=== PATIENT | male | born 1975 | race Caucasian/White ===

== ENCOUNTER 2020-01-30 11:12 | Emergency (ER) | payer OTHER, SELFPAY ==
[2020-01-30] VITALS (11 sets, daily range): BP systolic 136–177; BP diastolic 97–107; PULSE 90–108; RESP 11–19; TEMP 36.1; O2SAT 83–99
--- NOTE | 2020-01-30 12:52 | ECG_ITS ---
Measurements Intervals [place] Rate: 91 P: 61 SD: 157 QRS: 24 QRSD: 95 T: 46 QT: 355 QTc: 437 Interpretive Statements SINUS RHYTHM EARLY PRECORDIAL R/S TRANSITION BORDERLINE ECG Electronically Signed On 01-30-2020 13:42:26 CDT by Brando Bains D.O.
[2020-01-30 13:17] LABS: Basophils Absolute Auto 0.1 K/mm3 (0.0-0.1); Basophils Percent Auto 0.6 % (0.2-1.2); Eosinophils Percent Auto 0.2 % (0-4.4); Hematocrit 43.6 % (42.0-52.0); Hemoglobin 15.2 g/dL (14.0-18.0); Immature Granulocyte Absolute 0.07 K/mm3 (0.00-0.031); Immature Granulocyte Percent A 0.8 % (0-0.5); Lymphocytes Absolute Auto 1.21 K/mm3 (0.9-3.2); Lymphocytes Percent Auto 13.6 % (18.3-44.2); Mean Corpuscular HGB Conc 34.9 g/dl (32-36); Mean Corpuscular Hemoglobin 32.1 pg (26-34); Mean Platelet Volume 9.8 fl (7.4-10.4); Monocytes Absolute Auto 0.3 K/mm3 (0.1-0.6); Monocytes Percent Auto 3.7 % (2.6-8.5); Neutrophils Absolute Auto 7.2 K/mm3 (1.3-6.7); Neutrophils Percent Auto 81.1 % (45.5-73.1); Platelet Count Result 250 k/mm3 (150-375); Red Blood Count 4.74 M/mm3 (4.6-6.20); Red Cell Distribution Width 11.9 % (11.5-14.5); White Blood Count 8.9 K/mm3 (4.5-10.0)
[2020-01-30 13:27] LABS: Alanine Aminotransferase 24 U/L (4-50); Albumin Level 4.7 g/dL (3.5-5.1); Alkaline Phosphatase 85 U/L (38-126); Anion Gap 11 mmol/L (8-16); Aspartate Amino Transferase 31 U/L (17-59); Bilirubin,Total 0.4 mg/dL (0.2-1.3); Blood Urea Nitrogen 16 mg/dL (9-20); Calcium 9.4 mg/dL (8.4-10.2); Carbon Dioxide 27 mmol/L (22-30); Chloride 102 mmol/L (98-107); Estimated CRCL calculation 91 ml/min; Estimated Glomerular Filt Rate > 60; Glucose 109 mg/dL (75-110); Potassium 4.2 mmol/L (3.4-5.0); Sodium 140 mmol/L (137-145)
--- NOTE | 2020-01-30 15:19 | ED.GENADULT ---
HPI - General Adult General Chief complaint: Alcohol Stated complaint: alcohol withdrawl Time Seen by Provider: 01/30/20 12:24 Source: patient History of Present Illness HPI narrative: Patient is a 44 y/o male complaining of mild to moderate shaking since this morning. He states that he drinks heavily daily, perhaps 15 beers a day. He last drank approximately 8 PM last night. He has some nausea. He denies any abdominal pain, vomiting or seizure. He states that the shaking has improved slightly. Related Data Allergies Allergy/AdvReac Type Severity Reaction Status Date / Time No Known Allergies Allergy Verified 01/30/20 12:46 Review of Systems Constitutional: Constitutional: Denies chills, Denies fever(s), Denies headache(s) and Denies weakness Eyes: Eyes: Denies blurry vision ENT: Denies headache(s) and Denies neck pain Cardiovascular: Cardiovascular: Denies chest pain and Denies dyspnea Respiratory: Respiratory: Denies cough and Denies dyspnea Gastrointestinal: Gastrointestinal: Denies abdominal pain, Denies diarrhea, Reports nausea and Denies vomiting Genitourinary: Genitourinary: Denies hematuria and Denies dysuria Musculoskeletal: Musculoskeletal: Denies back pain and Denies neck pain Neurologic: Denies headache(s), Reports tremor(s) and Denies weakness Exam Const: General: no acute distress and well developed Orientation/consciousness: oriented to person, oriented to place, oriented to time and patient oriented x3 HENMT: Head: normocephalic Ears: external ears normal General nose exam: Normal external nose present Eyes: General: appearance normal, both eyes and all related structures Conjunctivae: conjunctivae normal Neck: Neck: normal visual inspection and full ROM Chest: Chest palpation & inspection: normal inspection of the chest and no tenderness Resp: Effort & Inspection: normal respiratory effort Auscultation: clear to auscultation bilaterally Cardio: Rate: regular rate Rhythm: regular rhythm GI: GI Palp: No abdominal tenderness and Yes Soft to palpation Skin: General skin exam: normal color and turgor normal Neuro: General: oriented to person, oriented to place, oriented to time and patient oriented x3 Cognition (Neuro): normal cognition Motor exam (neuro): no tremors Extrem: General: normal to inspection, full ROM and no pedal edema Psych: Appearance: grossly normal Mental Status: mental status grossly normal Affect: normal affect Course Vital Signs Vital signs: Vital Signs Temperature 36.1 C L 01/30/20 11:27 Pulse Rate 108 H 01/30/20 11:27 Respiratory Rate 12 01/30/20 11:27 Blood Pressure 136/107 H 01/30/20 11:27 Pulse Oximetry 99 01/30/20 11:27 Temperature 36.1 C L 01/30/20 11:27 Pulse Rate 92 01/30/20 15:02 Respiratory Rate 19 01/30/20 15:02 Blood Pressure 153/99 H 01/30/20 15:02 Pulse Oximetry 95 01/30/20 15:02 Medical Decision Making Vital Signs Vital Signs: Vital Signs Temperature 36.1 C L 01/30/20 11:27 Pulse Rate 108 H 01/30/20 11:27 Respiratory Rate 12 01/30/20 11:27 Blood Pressure 136/107 H 01/30/20 11:27 Pulse Oximetry 99 01/30/20 11:27 Temperature 36.1 C L 01/30/20 11:27 Pulse Rate 92 01/30/20 15:02 Respiratory Rate 19 01/30/20 15:02 Blood Pressure 153/99 H 01/30/20 15:02 Pulse Oximetry 95 01/30/20 15:02 Lab Data Result diagrams: 01/30/20 13:02 01/30/20 13:02 Labs: Lab Results 01/30/20 01/30/20 Range/Units 13:02 13:02 WBC 8.9 (4.5-10.0) K/mm3 RBC 4.74 (4.6-6.20) M/mm3 Hgb 15.2 (14.0-18.0) g/dL Hct 43.6 (42.0-52.0) % MCV 92.0 (80-100) fl MCH 32.1 (26-34) pg MCHC 34.9 (32-36) g/dl RDW 11.9 (11.5-14.5) % Plt Count 250 (150-375) k/mm3 MPV 9.8 (7.4-10.4) fl Immature Gran % (Auto) 0.8 H (0-0.5) % Neut % (Auto) 81.1 H (45.5-73.1) % Lymph % (Auto) 13.6 L (18.3-44.2) % [place] % (Auto) 3.7 (2.6-8.5) %
== END 2020-01-30 15:03 | disposition home or self-care (01) ==
PROVIDERS: Emergency Provider Emergency Medicine; PCP Emergency Medicine
DX: F10.230 Alcohol dependence with withdrawal, uncomplicated (principal); R94.31 Abnormal electrocardiogram [ECG] [EKG]
CPT/HCPCS: 36415; 80053; 85025; 93005; 99283

== ENCOUNTER 2020-05-27 11:38 | Day surgery (SDC) | payer OTHER, SELFPAY ==
[2020-05-27] VITALS (10 sets, daily range): BP systolic 101–139; BP diastolic 69–91; PULSE 108–143; RESP 12–20; TEMP 36.8–37.9; O2SAT 95–99
--- NOTE | ~2020-05-27 | CT_ITS ---
EXAMINATION: CT abdomen pelvis w con INDICATION: Right lower quadrant pain TECHNIQUE: Computed tomographic images of the abdomen and pelvis were obtained after the administrati on of 100 cc of Omnipaque 350 intravenous contrast. The dose-length product (DLP) was 490.85 mGy-cm. Automated exposure control and iterative reconstruction technique were employed. COMPARISON: None available FINDINGS: Minimal dependent atelectasis is present in the lung bases. The heart size is normal. The l iver, spleen, pancreas, and adrenal glands are normal. The gallbladder is surgically absent. There is mild enlargement of the common bile duct and central intrahepatic ducts which is likely due to post cholecystectomy state. A small amount of pneumobilia is also noted. The kidneys are unremarkable. The dilated appendix measures up to 12 mm. There is edematous stranding of the periappendiceal fat. Ther e is no evidence of perforation or periappendiceal abscess. No pathologically enlarged abdominal or p elvic lymph nodes are identified. There is no free intraperitoneal gas or evidence of bowel obstructi on. IMPRESSION: 1. Acute appendicitis. These findings were discussed with VITOR Dejesus in the Emergency Departme at 1358 hours on 05/27/2020. Reviewed, dictated and finalized at location A. SSMENT CONSULTANT IMPRESSION: 1. Acute appendicitis. These findings were discussed with VITOR Dejesus in the Emergency Department at 1358 hours on 05/27/2020.
[2020-05-27 12:07] LABS: Basophils Percent Auto 0.2 % (0.2-1.2); Hematocrit 42.1 % (42.0-52.0); Immature Granulocyte Absolute 0.12 K/mm3 (0.00-0.031); Immature Granulocyte Percent A 0.9 % (0-0.5); Lymphocytes Percent Auto 2.2 % (18.3-44.2); Mean Corpuscular HGB Conc 35.6 g/dl (32-36); Mean Corpuscular Hemoglobin 32.7 pg (26-34); Mean Corpuscular Volume 91.7 fl (80-100); Mean Platelet Volume 9.6 fl (7.4-10.4); Monocytes Absolute Auto 0.5 K/mm3 (0.1-0.6); Monocytes Percent Auto 3.3 % (2.6-8.5); Neutrophils Absolute Auto 12.7 K/mm3 (1.3-6.7); Neutrophils Percent Auto 93.4 % (45.5-73.1); Platelet Count Result 160 k/mm3 (150-375); Red Blood Count 4.59 M/mm3 (4.6-6.20); Red Cell Distribution Width 11.9 % (11.5-14.5); White Blood Count 13.6 K/mm3 (4.5-10.0)
[2020-05-27] MEDS: SODIUM CHLORIDE 0.9% IV 1,000 ML 999 ML IV CONT ×2 (12:17→14:37)
[2020-05-27] MEDS: FAMOTIDINE 20 MG/2 ML VIAL IV PUSH (12:17)
[2020-05-27 12:18] LABS: Alanine Aminotransferase 25 U/L (4-50); Albumin Level 4.7 g/dL (3.5-5.1); Alkaline Phosphatase 84 U/L (38-126); Anion Gap 10 mmol/L (8-16); Aspartate Amino Transferase 31 U/L (17-59); Bilirubin,Total 1.2 mg/dL (0.2-1.3); Blood Urea Nitrogen 14 mg/dL (9-20); Calcium 9.6 mg/dL (8.4-10.2); Carbon Dioxide 24 mmol/L (22-30); Chloride 101 mmol/L (98-107); Estimated CRCL calculation 75 ml/min; Estimated Glomerular Filt Rate > 60; Glucose 161 mg/dL (75-110); Lipase 24 U/L (23-300); Potassium 4.3 mmol/L (3.4-5.0); Sodium 135 mmol/L (137-145)
[2020-05-27 12:25] LABS: Add Urine Microscopic? YES; Appearance Urine Clear (Clear); Bilirubin Urine Negative (Negative); Blood Urine Negative (Negative); Color Urine Yellow (Yellow); Glucose Urine UA Negative (Negative); Ketones Urine Negative (Negative); Leukocyte Esterase Ur Trace LEU/UL (Negative); Mucus Urine Rare /lpf; Nitrate Urine Negative (Negative); Protein Urine 1+ mg/dL (Negative); RBC Urine 0-2 /hpf (0-2); Specific Grav Ur 1.019 (1.001-1.035); Squamous Epithelial Cell Urine Rare /hpf (Few); Transitional Epi Cells Urine Rare /hpf (None Seen); Urobilinogen Urine Negative mg/dL (<2.0)
--- NOTE | 2020-05-27 13:36 | ED.ABDPAIN ---
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 Patient denies fever chills nausea vomiting Related Data Home Medications Medication Instructions Recorded Confirmed buspirone mg 05/27/20 doxepin 05/27/20 oxycodone 05/27/20 sertraline mg 05/27/20 trazodone 100 mg 05/27/20 Allergies Allergy/AdvReac Type Severity Reaction Status Date / Time No Known Allergies Allergy Verified 05/27/20 11:41 Review of Systems Review of Systems: All systems reviewed & are unremarkable except as noted in HPI and below PMFSH Surgical History Surgical History (Updated 05/27/20 @ 13:37 by Jason Maldonado PA-C) S/P skin biopsy Exam Narrative: Exam Narrative: GENERAL: Well-appearing, well-nourished, and in no acute distress. HEAD: Normocephalic, atraumatic. EYES: PERRLA and EOMI. ENT: Nares clear, no rhinorrhea or epistaxis. Mucous membranes moist. CHEST: Clear to auscultation. No respiratory distress. No wheezes rales or rhonchi HEART: Tachycardic rate and regular rhythm. No murmur heard. Normal peripheral pulses. ABDOMEN: Soft, right lower quadrant abdominal pain without voluntary guarding or rebound r, nondistended, normal active bowel sounds. EXTREMITIES: Normal range of motion. No edema. SKIN: Warm, dry, no rash. NEURO: No focal deficits. Alert and oriented x3. PSYCH: Normal mood and affect. Course Course Emergency Course: Patient hydrated given Zosyn after being found to have appendicitis patient will be transferred to the surgical suite for removal of his appendix by Dr. Laws patient agrees with this plan resting comfortably in the room in no distress Consultations Consultation #1: Discussed case with Dr. Laws who will take the patient to the operating room patient to be given Zosyn and fluids Date: 05/27/20 Time: 14:45 Vital Signs Vital signs: Vital Signs Temperature 98.2 F 05/27/20 11:39 Pulse Rate 143 H 05/27/20 11:39 Respiratory Rate 20 05/27/20 11:39 Blood Pressure 135/91 H 05/27/20 11:39 Pulse Oximetry 99 05/27/20 11:39 Temperature 98.2 F 05/27/20 12:47 Pulse Rate 120 H 05/27/20 13:52 Respiratory Rate 18 05/27/20 13:52 Blood Pressure 139/83 05/27/20 13:52 Pulse Oximetry 97 05/27/20 13:52 MDM - Abdominal Pain MDM Narrative Medical decision making narrative: Patient with acute appendicitis will be switched over to the operating room patient was given fluids and antibiotics in the emergency department Lab Data Result diagrams: 05/27/20 11:55 05/27/20 11:55 Labs: Lab Results 05/27/20 05/27/20 05/27/20 Range/Units 11:55 11:55 11:55 WBC 13.6 H (4.5-10.0) K/mm3 RBC 4.59 L (4.6-6.20) M/mm3 Hgb 15.0 (14.0-18.0) g/dL Hct 42.1 (42.0-52.0) % MCV 91.7 (80-100) fl MCH 32.7 (26-34) pg MCHC 35.6 (32-36) g/dl RDW 11.9 (11.5-14.5) % Plt Count 160 (150-375) k/mm3 MPV 9.6 (7.4-10.4) fl Immature Gran % (Auto) 0.9 H (0-0.5) % Neut % (Auto) 93.4 H (45.5-73.1) % Lymph % (Auto) 2.2 L (18.3-44.2) % [place] % (Auto) 3.3 (2.6-8.5) % Eos % (Auto) 0.0 (0-4.4) % Baso % (Auto) 0.2 (0.2-1.2) % Lymph # (Auto) 0.30 L (0.9-3.2) K/mm3 [place] # (Auto) 0.5 (0.1-0.6) K/mm3 Eos # (Auto) 0.0 (0-0.3) K/mm3 Baso # (Auto) 0.0 (0.0-0.1) K/mm3 Abs Immat Gran (auto) 0.12 H (0.00-0
--- NOTE | 2020-05-27 14:55 | PM.IMHP ---
H&P: HPI History of Present Illness Date/Time: 05/27/20 14:55 Chief Complaint: Acute Appendicitis Narrative: Irene Dougherty is a 45 year old male patient who presents to emergency department with 1 day duration of right lower quadrant abdominal pain. He describes it as an aching pain worse with activity and movement and denies similar occurrence in the past. 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 Patient denies fever, chills, nausea,and vomiting Workup in the emergency room [place] [id number] scan of the abdomen pelvis reveals previous history of a cholecystectomy, some mild atelectasis in lower a little area of his lungs and acute appendicitis without signs of complication. Appendix was 12 mm in diameter with some surrounding edematous/inflammatory changes. Related Data Review of Systems Constitutional: Constitutional: Reports no additional constitutional complaints, Reports fatigue and Denies malaise Eyes: Eyes: Denies change in vision and Denies loss of vision ENT: Reports Normal hearing present, Denies change in voice, Denies dizziness, Denies hoarseness and Denies sore throat Cardiovascular: Cardiovascular: Denies chest pain, Denies leg edema and Denies dyspnea Respiratory: Respiratory: Denies cough, Denies dyspnea and Denies wheezing Gastrointestinal: Gastrointestinal: Denies hematochezia, Denies change in bowel habits and Denies heartburn Genitourinary: Genitourinary: Denies urinary frequency and Denies urinary incontinence Integumentary/Breasts: Skin/Breast: Reports as per HPI Comments: Patient has had 2 superficial melanomas. One cared for with Mohs surgery on his face just below his right eye the other excised at [facility] earlier this week. No sentinel lymph node done apparently. Neurologic: Reports Normal hearing present, Denies confusion, Denies dizziness, Denies loss of vision, Denies memory loss and Denies seizure-like activity Psychiatric: Psychiatric: Denies confusion, Denies depression and Denies memory loss Endocrine: Endocrine: Denies cold intolerance and Reports fatigue Hematologic/Lymphatic: Hematologic/Lymphatic: Denies easy bleeding and Denies easy bruising Allergic/Immunologic: Allergic/Immunologic: Denies wheezing PMFSH Past Medical History Medical History (Updated 05/27/20 @ 15:23 by Hosea Laws MD) Depression Surgical History Surgical History S/P skin biopsy Family History Family History (Updated 05/27/20 @ 15:20 by Hosea Laws MD) Father Laryngeal cancer Mother Thyroid disease Social History Social History (Updated 05/27/20 @ 15:21 by Hosea Laws MD) Smoking status: Never smoker Alcohol intake: former Alcohol use details: History of heavy alcohol use in the past none recently Substance use: never Meds Home Medications and Allergies Home Medications Medication Instructions Recorded Confirmed Type buspirone mg 05/27/20 History doxepin 05/27/20 History oxycodone 05/27/20 History sertraline mg 05/27/20 History trazodone 100 mg 05/27/20 History Allergies Allergy/AdvReac Type Severity Reaction Status Date / Time No Known Allergies Allergy Verified 05/27/20 11:41 Vital Signs Vital Signs - 24 hr 05/27/20 11:39 05/27/20 12:47 05/27/20 13:52 Temperature 36.8 C 36.8 C Pulse Rate 143 H 120 H Respiratory Rate 20 18 Blood Pressure 135/91 H 139/83 Pulse Oximetry 99 97 Exam Const: General: cooperative, no acute distress, well developed, alert and awake Nutritional Appearance: well nourished Orientation/consciousness: patient oriented x3 Li
--- NOTE | 2020-05-27 15:22 | WPDANESEPP ---
Anes - Eval Pre Procedure Procedure: Operation Date: 05/27/20 16:30 Proposed Procedures p Laparoscopic Appendectomy, possible open - Hosea Laws MD Date/Time: 05/27/20 15:22 Surgeon: ivan Preop Diagnosis: acute appendicitis Pre Op Diagnosis: RIGHT SIDED ABD PAIN Patient Data Age: 45 Gender: M Height: 5 ft 9 in Weight: 84 kg Last Vital Signs Temp 36.8 C 05/27/20 12:47 Pulse 120 H 05/27/20 13:52 Resp 18 05/27/20 13:52 BP 139/83 05/27/20 13:52 Pulse Ox 97 05/27/20 13:52 Allergies Allergy/AdvReac Type Severity Reaction Status Date / Time No Known Allergies Allergy Verified 05/27/20 11:41 Home Medications Medication Instructions Recorded Confirmed Type buspirone mg 05/27/20 History doxepin 05/27/20 History oxycodone 05/27/20 History sertraline mg 05/27/20 History trazodone 100 mg 05/27/20 History Laboratory Tests 05/27/20 05/27/20 05/27/20 11:55 11:55 11:55 WBC 13.6 K/mm3 H K/mm3 (4.5-10.0) RBC 4.59 M/mm3 L M/mm3 (4.6-6.20) Hgb 15.0 g/dL g/dL (14.0-18.0) Hct 42.1 % % (42.0-52.0) MCV 91.7 fl fl (80-100) MCH 32.7 pg pg (26-34) MCHC 35.6 g/dl g/dl (32-36) RDW 11.9 % % (11.5-14.5) Plt Count 160 k/mm3 k/mm3 (150-375) MPV 9.6 fl fl (7.4-10.4) Immature Gran % (Auto) 0.9 % H % (0-0.5) Neut % (Auto) 93.4 % H % (45.5-73.1) Lymph % (Auto) 2.2 % L % (18.3-44.2) [place] % (Auto) 3.3 % % (2.6-8.5) Eos % (Auto) 0.0 % % (0-4.4) Baso % (Auto) 0.2 % % (0.2-1.2) Lymph # (Auto) 0.30 K/mm3 L K/mm3 (0.9-3.2) [place] # (Auto) 0.5 K/mm3 K/mm3 (0.1-0.6) Eos # (Auto) 0.0 K/mm3 K/mm3 (0-0.3) Baso # (Auto) 0.0 K/mm3 K/mm3 (0.0-0.1) Abs Immat Gran (auto) 0.12 K/mm3 H K/mm3 (0.00-0.031) Absolute Neuts (auto) 12.7 K/mm3 H K/mm3 (1.3-6.7) Absolute Nucleated RBC 0.0 K/mm3 K/mm3 (0.0-0.012) Nucleated RBC % 0.0 % % (0.0-0.2) Sodium 135 mmol/L L mmol/L (137-145) Potassium 4.3 mmol/L mmol/L (3.4-5.0) Chloride 101 mmol/L mmol/L (98-107) Carbon Dioxide 24 mmol/L mmol/L (22-30) Anion Gap 10 mmol/L mmol/L (8-16) BUN 14 mg/dL mg/dL (9-20) Creatinine 1.10 mg/dL mg/dL (0.7-1.3) Estim Creat Clear Calc 75 ml/min ml/min Estimated GFR > 60 (59 - ) Glucose 161 mg/dL H mg/dL (75-110) Calcium 9.6 mg/dL mg/dL (8.4-10.2) Total Bilirubin 1.2 mg/dL mg/dL (0.2-1.3) AST 31 U/L U/L (17-59) ALT 25 U/L U/L (4-50) Alkaline Phosphatase 84 U/L U/L (38-126) Total Protein 8.0 g/dL g/dL (6.3-8.2) Albumin 4.7 g/dL g/dL (3.5-5.1) Lipase 24 U/L U/L (23-300) Urine Color Yellow (Yellow) Urine Appearance Clear (Clear) Urine pH 6.0 (5.0-9.0) Ur Specific [place] 1.019 (1.001-1.035) Urine Protein 1+ mg/dL H mg/dL (Negative) Urine Glucose (UA) Negative mg/dL mg/dL (Negative) Urine Ketones Negative mg/dL mg/dL (Negative) Ur Blood (Man) Negative (Negative) Urine Nitrate Negative (Negative) Urine Bilirubin Negative (Negative) Urine Urobilinogen Negative mg/dL mg/dL (<2.0) Leukocyte Esterase Rfl Trace GUILLERMINA/UL H GUILLERMINA/UL (Negative) Urine RBC 0-2 /hpf /hpf (0-2) Urine WBC 4-6 /hpf H /hpf Ur Squamous Epith Cells Rare /hpf /hpf (Few) Ur Transition Epith Cell Rare /hpf /hpf (None Seen) Urine Mucus Rare /lpf /lpf Patient hx anesthesia problems: none Family hx anesthesia problems: none [facility] Past Medical History Medical History (Updated 05/27/20 @ 15:23 b
--- NOTE | 2020-05-27 15:34 | WPDANESEFPP ---
Anes - Eval Final PreProcedure Day of Procedure 05/27/20 15:34 Patient weight: overweight Heart: regular rate and rhythm Lungs: clear to auscultation Airway: Mallampati scale class II Neurological: alert and oriented Last oral intake: >/= 8 hours ASA classification: III Emergent: yes Anesthetic plan: proceed Anesthesia type and monitoring: general ETT Informed Consent: The patient's anesthetic plan and its attendant risks and benefits were discussed with the patient/family/POA. Questions were solicited and answers provided to the satisfaction of the patient/family/POA.
[2020-05-27] MEDS: BUPIVACAINE/EPINEPHRINE 0.5% 10 ML VIAL 20 ML INFILTRATE (15:52)
--- NOTE | 2020-05-27 16:31 | PM.PROC ---
Procedure Note - Detailed Date of procedure: 05/27/20 Pre-op diagnosis: RIGHT SIDED ABD PAIN Acute uncomplicated appendicitis Post-op diagnosis: same Procedure performed: Laparoscopic Appendectomy Description of procedure: The patient was seen again in the Holding Room. The risks, benefits, complications, treatment options, and expected outcomes were discussed with the patient and/or family. The possibilities of reaction to medication, pulmonary aspiration, perforation of viscus, bleeding, recurrent infection, finding a normal appendix, the need for additional procedures, failure to diagnose a condition, and creating a complication requiring transfusion or operation were discussed. There was concurrence with the proposed plan and informed consent was obtained. The site of surgery was properly noted/marked. The patient was taken to Operating Room, and a time out was preformed which identified this as the proper patient, and the procedure verified as laparoscopic appendectomy, possible open. The patient was placed in the supine position and general anesthesia was induced, along with placement of orogastric tube, SCD hose, and a Jose catheter. The abdomen was prepped and draped in a sterile fashion. Because the patient had had previous surgeries the Enrique cannula technique was utilized. To do this I made a incision in the umbilical area and carried this down to the midline fascia. Under direct vision the midline fascia was incised and the peritoneum entered under direct vision after placing 2 sutures of 0 Vicryl in the fascia on either side of midline. The Enrique cannula was then slid into place into the peritoneum under direct vision. The pneumoperitoneum was then established to steady pressure of 14 mm Hg. A 12 mm laparoscopic port was placed through a transverse suprapubic incision. An additional 5 mm cannula was then placed in the left upper quadrant of the abdomen at a level half way between the umbilicus and the left subcostal area under direct vision. A careful evaluation of the entire abdomen was carried out. The patient was placed in Trendelenburg and left lateral decubitus position. The small intestines were retracted in the cephalad and left lateral direction away from the pelvis and right lower quadrant. The patient was found to have an enlarged and inflamed appendix that was extending [into the right side of the pelvis. There was no evidence of perforation. The appendix was carefully dissected. This required just a little bit of dissection of the peritoneum around the lateral side and the base of the appendix with the L shape cautery instrument. It was noted to be quite short small and thick. Once it was free the appendix was then divided at its base using the 45 mm stapler with a 3.5 mm bowel wall load. Minimal appendiceal stump was left in place. The appendiceal artery bled some however, it was touched with Bovie cautery using the L hook and this seemed to achieve good hemostasis along the staple line. I placed 1 unfolded 4 x 4 down the 10 mm port in the suprapubic position and soaked up the bleeding from the area of the appendiceal artery and we sponged the appendiceal stump. There was no continuing bleeding. We placed the appendix in a bag and pulled it out and then the looked at the stump again and there was no evidence of bleeding, leakage, or complication after division of the appendix at its junction with the cecum. The appendix and the bag were then extracted through this larger port site in the suprapubic position. The suprapubic port site was closed using a #1 Polysorb suture passed with a Mike-Sanchez cone and needle suture passer Also I used a standard needle peng externally through the suprapubic incision at the level of the fascia to reinforce the fascial closure. I also shortened 1 of the 0 Polysorb sutures used as a stay suture at the umbilical site and did a [id number] suture to close the umbilical fascia. The 2 stay sutur
[2020-05-27] MEDS: LACTATED RINGERS 1,000 ML 30 ML IV CONT (16:34)
== END 2020-05-27 17:59 | disposition home or self-care (01) ==
LOC: ANHED 12:53 → ANHSURGERY 14:29
PROVIDERS: Emergency Provider Emergency Medicine; PCP Family Medicine; Visit Provider Surgery
PROC: 0DTJ4ZZ Resection of Appendix, Percutaneous Endoscopic Approach (ICD-10-PCS; CPT 44970; principal; 2020-05-27 16:30)
DX: C18.1 Malignant neoplasm of appendix (principal); K35.80 Unspecified acute appendicitis; F32.9 Major depressive disorder, single episode, unspecified; C43.9 Malignant melanoma of skin, unspecified; Z72.89 Other problems related to lifestyle
CPT/HCPCS: 44970; 36415; 74177; 80053; 81001; 83690; 85025; 88304; 96365; 96375; 99285; J0131; J1100; J1170; J1200; J2250; J2405; J2543; J2704; J2710; J3010; J7030; J7120; Q9967

== ENCOUNTER → 2020-07-28 01:30 | Outpatient (CLI) | payer OTHER, SELFPAY ==
[2020-07-28 20:22] LABS: SARS-CoV-2 RNA PCR Negative
== END ==
PROVIDERS: PCP Family Medicine; Visit Provider Surgery
DX: Z01.812 Encounter for preprocedural laboratory examination (principal); Z20.822 Contact with and (suspected) exposure to COVID-19
CPT/HCPCS: C9803; U0003; U0005

== ENCOUNTER 2020-07-31 01:17 | Day surgery (SDC) | payer OTHER, SELFPAY ==
[2020-07-18 11:12] VITALS: BMI 28.3
[2020-07-31 12:53] VITALS: BMI 27.3
[2020-07-31] MEDS: LACTATED RINGERS 1,000 ML 150 ML IV CONT (12:58)
--- NOTE | 2020-07-31 12:58 | WPDANESEPPF ---
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 Patient Data Age: 45 Gender: M Height: 5 ft 9 in Weight: 84 kg Allergies Allergy/AdvReac Type Severity Reaction Status Date / Time No Known Allergies Allergy Verified 07/18/20 11:11 Home Medications Medication Instructions Recorded Confirmed Type buspirone 10 mg PO DAILY 05/27/20 07/18/20 History doxepin 50 mg PO DAILY 05/27/20 07/18/20 History sertraline 100 mg PO DAILY 05/27/20 07/18/20 History trazodone 100 mg PO HS 05/27/20 07/18/20 History Patient hx anesthesia problems: none Family hx anesthesia problems: none PMFSH Past Medical History Medical History Depression Surgical History Surgical History History of laparoscopic appendectomy S/P skin biopsy Family History Family History Father Laryngeal cancer Mother Thyroid disease Social History Social History Years smoked: 7 Smoking status: Former smoker Tobacco type: cigarettes Alcohol intake: never Substance use: never Substance use type: does not use Living arrangements: with family Spiritual care concerns: No Anes - Eval Final PreProcedure Day of Procedure 07/31/20 12:58 Patient weight: overweight Heart: regular rate and rhythm Lungs: clear to auscultation Airway: Mallampati scale class II Neurological: alert and oriented Last oral intake: >/= 8 hours ASA classification: II Emergent: no Anesthetic plan: proceed Anesthesia type and monitoring: general GIVS and standard monitoring Informed Consent: The patient's anesthetic plan and its attendant risks and benefits were discussed with the patient/family/POA. Questions were solicited and answers provided to the satisfaction of the patient/family/POA.
--- NOTE | 2020-07-31 13:26 | WPDHPUPDATE1 ---
History and Physical Update Update Date/Time: 07/31/20 13:26 History and Physical has been reviewed, including an updated exam of the patient. There are NO changes in the patient's condition. Risks, benefits, and alternatives have been discussed and questions answered. Patient agrees to proceed with procedure.
[2020-07-31 14:52] VITALS: BP 109/77; PULSE 92; RESP 22; O2SAT 100
[2020-07-31 15:02] VITALS: BP 120/91; PULSE 80; RESP 20; O2SAT 100
[2020-07-31 15:12] VITALS: BP 136/90; PULSE 85; RESP 20; O2SAT 100
== END 2020-07-31 15:45 | disposition home or self-care (01) ==
PROVIDERS: PCP Family Medicine; Visit Provider Surgery
PROC: 0DJD8ZZ Inspection of Lower Intestinal Tract, Via Natural or Artificial Opening Endoscopic (ICD-10-PCS; CPT 45378; principal; 2020-07-31 14:00)
DX: Z12.11 Encounter for screening for malignant neoplasm of colon (principal); K63.5 Polyp of colon; K62.1 Rectal polyp; K57.30 Diverticulosis of large intestine without perforation or abscess without bleeding; Z85.09 Personal history of malignant neoplasm of other digestive organs; F32.9 Major depressive disorder, single episode, unspecified; Z87.891 Personal history of nicotine dependence
CPT/HCPCS: 45380; 88305; J2704; J7120

== ENCOUNTER 2021-04-04 15:07 | Emergency (ER) | payer OTHER, SELFPAY ==
[2021-04-04 15:22] VITALS: BP 131/89; PULSE 95; RESP 18; TEMP 36.7; O2SAT 98
--- NOTE | 2021-04-04 15:38 | ED.GENADULT ---
HPI - General Adult General Chief complaint: Urogenital-Male Stated complaint: UTI Time Seen by Provider: 04/04/21 15:30 Source: patient, RN notes reviewed and old records reviewed Mode of arrival: ambulatory Limitations: no limitations History of Present Illness HPI narrative: 46-year-old male presents to the [facility] with come pains of my eyes are yellow and I think I have liver issues. Patient states this started approximately 3 days ago with increased weakness, yellowing of the eyes and very dry skin. States he started drinking a lot of water but it did nothing. Drank a bunch of beer last night and states yellowish the eyes got a little bit better. Denies any chest pain or abdominal pain. States that he has been generalized weak over the last 2 to 3 days. Reports starting a cholesterol medication approximately 3 weeks ago. Related Data Home Medications Medication Instructions Recorded Confirmed sertraline 100 mg PO DAILY 05/27/20 02/19/21 trazodone 100 mg PO HS 05/27/20 02/19/21 Allergies Allergy/AdvReac Type Severity Reaction Status Date / Time No Known Allergies Allergy Verified 04/04/21 15:26 Review of Systems Review of Systems: All systems reviewed & are unremarkable except as noted in HPI and below Constitutional: Constitutional: Reports as per HPI, Denies chills, Reports fatigue, Denies fever(s) and Reports weakness Eyes: Eyes: Reports as per HPI Comments: Yellowish of the eyes ENT: Reports as per HPI Comments: Oral mucosa, yellowish Cardiovascular: Cardiovascular: Reports no additional cardiovascular complaints, Denies chest pain and Denies radiating jaw, neck or arm pain Respiratory: Respiratory: Reports no additional respiratory complaints, Denies cough and Denies dyspnea Gastrointestinal: Gastrointestinal: Reports no additional gastrointestinal complaints, Denies abdominal pain, Denies nausea and Denies vomiting Genitourinary: Genitourinary: Reports as per HPI, Denies dysuria, Denies urinary frequency and Denies urinary incontinence Comments: Brown urine Musculoskeletal: Musculoskeletal: Reports no additional musculoskeletal complaints Integumentary/Breasts: Skin/Breast: Reports as per HPI Comments: Dry skin Neurologic: Reports system reviewed and no additional complaints, except as documented Psychiatric: Psychiatric: Reports no additional psychiatric complaints Allergic/Immunologic: Allergic/Immunologic: Reports no additional allergic/immunologic complaints PMFSH Past Medical History Medical History Acute appendicitis Anxiety Depression Diverticula of intestine Heartburn Melanoma Surgical History Surgical History History of colonoscopy History of laparoscopic appendectomy 2020 S/P skin biopsy 2020 Family History Family History Father Laryngeal cancer Mother Thyroid disease Social History Social History Years smoked: 10 Smoking status: Former smoker Tobacco type: cigarettes Smoking end date: 02/02/20 Alcohol intake: current Drinks per week: 63 Alcohol use details: 7 beers a night during the week, about 14 beers a night on weekend. 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 Gender identity (if verbalized by the patient): Male Sexual Orientation (if Verbalized by the Patient): Straight or Heterosexual Spiritual care concerns: No Comments At the time of my signature, I reviewed and agree with the nursing past medical, surgical, social, and family history. There is no relevant family history pertinent to the patient complaint. Exam Const: General: no acute distress, alert and ill appearing acutely Nutritional Appearance: well nourished Orientation/consciousness: pa
== END 2021-04-04 15:45 | disposition left against medical advice (07) ==
PROVIDERS: Emergency Provider Nurse Practitioner; PCP Internal Medicine
DX: R17 Unspecified jaundice (principal); Z87.891 Personal history of nicotine dependence
CPT/HCPCS: 81003; 99212; G0463

== ENCOUNTER 2021-09-06 07:56 | Outpatient (CLI) | payer OTHER, SELFPAY ==
--- NOTE | ~2021-09-06 | CT_ITS ---
EXAMINATION: CT abdomen pelvis w con INDICATION: Neoplasm of uncertain behavior of the appendix, history of low-grade appendiceal mucinous neoplasm, noninvasive TECHNIQUE: Computed tomographic images of the abdomen and pelvis were obtained after the administrati on of 100 cc of Omnipaque 350 intravenous contrast. The dose-length product (DLP) was 532.60 mGy-cm. Automated exposure control and iterative reconstruction technique were employed. COMPARISON: 05/27/2020 FINDINGS: Minimal dependent atelectasis is present in the lung bases. The heart size is normal. The g allbladder is surgically absent. The liver, spleen, pancreas, and adrenal glands are normal. The kidn eys are unremarkable. There are changes of interval appendectomy. No pathologically enlarged abdomina l or pelvic lymph nodes are identified. There is no free intraperitoneal gas or evidence of bowel obs truction. No metastatic disease is evident. There is mild lumbar spondylosis. IMPRESSION: 1. Changes of interval appendectomy. No evidence of metastatic disease. Reviewed, dictated and finalized at location A.
== END 2021-09-06 07:57 | disposition home or self-care (01) ==
PROVIDERS: PCP Internal Medicine; Visit Provider Surgery
DX: D37.3 Neoplasm of uncertain behavior of appendix (principal)
CPT/HCPCS: 74177; Q9967

== ENCOUNTER 2021-12-08 10:49 | Emergency (ER) | payer OTHER, SELFPAY ==
[2021-12-08 10:50] VITALS: BP 145/98; PULSE 86; RESP 16; TEMP 36.3; O2SAT 100
[2021-12-08 11:21] LABS: Basophils Percent Auto 0.3 % (0.2-1.2); Eosinophils Percent Auto 0.4 % (0-4.4); Hematocrit 41.8 % (42.0-52.0); Hemoglobin 14.5 g/dL (14.0-18.0); Immature Granulocyte Absolute 0.04 K/mm3 (0.00-0.031); Immature Granulocyte Percent A 0.6 % (0-0.5); Lymphocytes Absolute Auto 1.18 K/mm3 (0.9-3.2); Lymphocytes Percent Auto 16.5 % (18.3-44.2); Mean Corpuscular HGB Conc 34.7 g/dl (32-36); Mean Corpuscular Hemoglobin 32.4 pg (26-34); Mean Corpuscular Volume 93.5 fl (80-100); Mean Platelet Volume 9.4 fl (7.4-10.4); Monocytes Absolute Auto 0.3 K/mm3 (0.1-0.6); Monocytes Percent Auto 4.3 % (2.6-8.5); Neutrophils Absolute Auto 5.6 K/mm3 (1.3-6.7); Neutrophils Percent Auto 77.9 % (45.5-73.1); Platelet Count Result 195 k/mm3 (150-375); Red Blood Count 4.47 M/mm3 (4.6-6.20); Red Cell Distribution Width 12.1 % (11.5-14.5); White Blood Count 7.2 K/mm3 (4.5-10.0)
[2021-12-08 11:33] LABS: Alanine Aminotransferase 27 U/L (6-50); Alkaline Phosphatase 68 U/L (38-126); Anion Gap 12 mmol/L (8-16); Aspartate Amino Transferase 30 U/L (17-59); Bilirubin,Total 0.9 mg/dL (0.2-1.3); Blood Urea Nitrogen 11 mg/dL (9-20); Calcium 9.3 mg/dL (8.4-10.2); Carbon Dioxide 21 mmol/L (22-30); Chloride 103 mmol/L (98-107); Estimated Glomerular Filt Rate > 60; Glucose 92 mg/dL (65-110); Lipase 38 U/L (23-300); Potassium 4.3 mmol/L (3.4-5.0); Sodium 136 mmol/L (137-145)
[2021-12-08 12:32] LABS: Appearance Urine Clear (Clear); Bilirubin Urine Negative (Negative); Blood Urine Negative (Negative); Color Urine Yellow (Yellow); Glucose Urine UA Negative (Negative); Ketones Urine Negative (Negative); Leukocyte Esterase Ur Negative LEU/UL (Negative); Nitrate Urine Negative (Negative); Protein Urine Negative (Negative); Specific Grav Ur 1.015 (1.001-1.035); Urobilinogen Urine 0.2 mg/dL (<2.0); pH Urine 5.5 (5.0-9.0)
[2021-12-08 12:44] LABS: Add Urine Microscopic? NO
[2021-12-08] MEDS: ONDANSETRON INJ 4 MG/2 ML VIAL IV PUSH (13:03)
[2021-12-08] MEDS: SODIUM CHLORIDE 0.9% IV 1,000 ML 999 ML IV CONT (13:04)
--- NOTE | 2021-12-08 13:54 | ED.GENADULT ---
HPI - General Adult General Chief complaint: Abdominal Pain Stated complaint: abd complaint Time Seen by Provider: 12/08/21 11:59 History of Present Illness HPI narrative: Patient is a 46-year-old male who presents to the ER with abdominal cramping. Reports over the last month he has had fatigue and weakness after experiencing COVID. He then had dehydration while at a rock and roll concert. Over the last week he been having abdominal cramping with diarrhea 3 times a day. Since dissipated. He still has some nausea and feels bubbles in his abdomen. No fevers or chills or sweats. No chest pain or chest pressure. Related Data Home Medications Medication Instructions Recorded Confirmed sertraline 100 mg tablet 100 mg PO DAILY 05/27/20 09/16/21 trazodone 50 mg tablet 100 mg PO HS 05/27/20 09/16/21 Allergies Allergy/AdvReac Type Severity Reaction Status Date / Time No Known Allergies Allergy Verified 09/11/21 08:05 Review of Systems Review of Systems: All systems reviewed & are unremarkable except as noted in HPI and below Constitutional: Constitutional: Denies chills, Reports fatigue and Denies fever(s) Cardiovascular: Cardiovascular: Denies chest pain and Denies radiating jaw, neck or arm pain Gastrointestinal: Gastrointestinal: Reports abdominal pain, Reports diarrhea, Reports nausea and Denies vomiting Genitourinary: Genitourinary: Denies oliguria, Denies dysuria and Denies urinary frequency Musculoskeletal: Musculoskeletal: Denies back pain and Denies myalgias [facility] Past Medical History Medical History Acute appendicitis Anxiety Depression Diverticula of intestine Heartburn Melanoma Surgical History Surgical History History of colonoscopy History of laparoscopic appendectomy 2020 S/P skin biopsy 2020 Family History Family History Father Laryngeal cancer Mother Thyroid disease Grandparent Diabetes mellitus Social History Social History Social History: caffeine use: 1 cup coffee daily Smoking packs per day: 0.2 Smoking cigarettes per day: 4.0 Years smoked: 10 Smoking pack-years: 2.00 Smoking status: Former smoker Tobacco type: cigarettes Smoking end date: 02/02/20 Alcohol intake: current Drinks per week: 63 Alcohol use details: Multiple beers a night during the week and on weekend. 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 HEAD: Normocephalic, atraumatic. CHEST: Clear to auscultation. No respiratory distress. HEART: Regular rate and rhythm. Normal peripheral pulses. ABDOMEN: Soft, nontender, nondistended. EXTREMITIES: Normal range of motion. No edema. SKIN: Warm, dry, no rash. NEURO: Alert and oriented x3. PSYCH: Normal mood and affect. Course Course Emergency Course: Patient resting comfortably. Informed of results. Hydrated and given antiemetics. Discharge home. Vital Signs Vital signs: Vital Signs Temperature 97.3 F L 12/08/21 10:50 Pulse Rate 86 12/08/21 10:50 Respiratory Rate 16 12/08/21 10:50 Blood Pressure 145/98 H 12/08/21 10:50 Pulse Oximetry 100 12/08/21 10:50 Oxygen Delivery Room Air 12/08/21 10:50 Temperature 97.3 F L 12/08/21 10:50 Pulse Rate 86 12/08/21 10:50 Respiratory Rate 16 12/08/21 10:50 Blood Pressure 145/98 H 12/08/21 10:50 Pulse Oximetry 100 12/08/21 10:50 Oxygen Delivery Room Air 12/08/21 10:50 Medical Decision Ralph
== END 2021-12-08 14:21 | disposition home or self-care (01) ==
PROVIDERS: Emergency Medicine; Emergency Provider Emergency Medicine; PCP Internal Medicine
DX: K52.9 Noninfective gastroenteritis and colitis, unspecified (principal); F41.9 Anxiety disorder, unspecified; F32.A Depression, unspecified; Z86.16 Personal history of COVID-19; Z85.820 Personal history of malignant melanoma of skin; Z87.891 Personal history of nicotine dependence
CPT/HCPCS: 36415; 80053; 81003; 83690; 85025; 96361; 96374; 99284; J2405; J7030

== ENCOUNTER 2022-12-18 10:09 | Outpatient (CLI) | payer OTHER, SELFPAY ==
[2022-12-18 10:43] LABS: Alanine Aminotransferase 22 U/L (6-50); Albumin Level 4.6 g/dL (3.5-5.1); Alkaline Phosphatase 43 U/L (38-126); Anion Gap 5 mmol/L (8-16); Aspartate Amino Transferase 26 U/L (17-59); Bilirubin,Total 0.6 mg/dL (0.2-1.3); Blood Urea Nitrogen 14 mg/dL (9-20); Calcium 8.6 mg/dL (8.4-10.2); Carbon Dioxide 25 mmol/L (22-30); Chloride 106 mmol/L (98-107); Cholesterol 188 mg/dL (0-200); Estimated Glomerular Filt Rate > 60; Glucose 100 mg/dL (65-110); HDL Direct 84 mg/dL; Potassium 4.7 mmol/L (3.4-5.0); Sodium 136 mmol/L (137-145); Triglycerides 112 mg/dL (<150)
[2022-12-18 10:57] LABS: LDL Cholesterol Direct 80 mg/dL
[2022-12-23 10:42] LABS: Testosterone Total 503
== END 2022-12-18 10:10 | disposition home or self-care (01) ==
PROVIDERS: PCP Family Medicine; Visit Provider Nurse Practitioner Family
DX: R53.83 Other fatigue (principal); Z79.899 Other long term (current) drug therapy
CPT/HCPCS: 36415; 80053; 80061; 84403; 84443